=== PATIENT | male | born 2000 | race Native Hawaiian/Other Pacific Islander ===

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

== ENCOUNTER 2023-09-21 21:32 | Emergency (ER) | payer MEDICAID ==
[~2023-09-21] VITALS: Ht 182.9 cm; Wt 68.2 kg
[2023-09-21 21:55] VITALS: BP 134/88; PULSE 108; RESP 20; O2SAT 99
[2023-09-21] MEDS ORDERED: CYCL-837 PO (23:19)
[2023-09-21] MEDS ORDERED: IBUP-1456 PO (23:19)
[2023-09-21] MEDS ORDERED: KETOROLAC TROMETH 60MG/2ML VIAL IM ONE (23:30)
== END 2023-09-22 00:27 | disposition home or self-care (01) ==
LOC: ER 21:32
DX: S29.012A Strain of muscle and tendon of back wall of thorax, initial encounter (principal); Z87.891 Personal history of nicotine dependence; Z79.899 Other long term (current) drug therapy; X58.XXXA Exposure to other specified factors, initial encounter; Y93.89 Activity, other specified; Y92.89 Other specified places as the place of occurrence of the external cause; Y99.8 Other external cause status
CPT/HCPCS: 96372; 99283; J1885